=== PATIENT | male | born 1975 | race Caucasian/White ===

== ENCOUNTER 2018-10-24 14:06 | Inpatient (IN) | payer SELFPAY ==
[~2018-10-24] VITALS: Ht 177.8 cm; Wt 60.8 kg
[2018-10-24] MEDS ORDERED: SODIUM CHLORIDE 0.9% 1000ML BAG (SEPSIS BOLUS) IV ONE (15:00)
[2018-10-24 15:20] LABS: CHLORIDE 111 mEq/L (98-107)
[2018-10-24 15:33] LABS: BASOPHILS % 0.9 % (0.0-2.0); EOSINOPHILS % 1.8 % (0.0-5.0); HEMOGLOBIN. 12.9 g/dL (14.0-18.0); LYMPHOCYTES % 33.8 % (20.0-50.0); MEAN CORPUSCULAR HEMOGLOBIN 29.6 pg (28.0-32.0); MEAN CORPUSCULAR VOLUME 89.2 fL (80.0-94.0); MEAN PLATELET VOLUME 8.3 fl (7.4-10.4); MONOCYTES % 11.4 % (2.0-8.0); NEUTROPHILS % 52.1 % (40.0-76.0); PLATELET 321 x1000/uL (130-400); RED BLOOD CELL COUNT 4.37 mill/uL (4.7-6.1); RED CELL DISTRIBUTION WIDTH 15.3 % (11.6-14.6)
[2018-10-24 17:22] LABS: CLARITY URINE CLEAR (CLEAR); COLOR URINE YELLOW (YELLOW); KETONES URINE TRACE (NEGATIVE); LEUKOCYTE ESTERASE URINE NEGATIVE (NEGATIVE); NITRITE URINE NEGATIVE (NEGATIVE); OCCULT BLOOD URINE 2+ (NEGATIVE); PH URINE 5.5 (4.5-8.0); PROTEIN URINE NEGATIVE (NEGATIVE); SPECIFIC GRAVITY URINE 1.029 (1.005-1.030)
[2018-10-24 17:57] LABS: *AMPHETAMINES SCREEN URINE NEGATIVE (NEGATIVE); *BARBITURATES SCREEN URINE NEGATIVE (NEGATIVE); *COCAINE SCREEN URINE NEGATIVE (NEGATIVE); CANNABINOID URINE SCREEN NEGATIVE (NEGATIVE); METHADONE URINE SCREEN NEGATIVE (NEGATIVE); OPIATES URINE SCREEN NEGATIVE (NEGATIVE); PHENCYCLIDINE URINE SCREEN NEGATIVE (NEGATIVE)
[2018-10-24 17:58] LABS: *BENZODIAZEPINES SCREEN URINE NEGATIVE (NEGATIVE)
[2018-10-24] MEDS ORDERED: ACETAMINOPHEN 325MG TABLET PO PRN (19:30)
[2018-10-24] MEDS ORDERED: IPRATROPIUM/ALBUTEROL 0.5-3(2.5)MG/3ML NEB INH PRN (19:30)
[2018-10-24] MEDS ORDERED: DOCUSATE SODIUM 100MG CAPSULE PO PRN (19:30)
[2018-10-24] MEDS ORDERED: ACETAMINOPHEN 650MG SUPP PR PRN (19:30)
[2018-10-24] MEDS ORDERED: ONDANSETRON HCL 4MG/2ML INJ IV PRN (19:30)
[2018-10-24] MEDS ORDERED: ACETAMINOPHEN 650MG/20.3ML UDC GT PRN (19:30)
[2018-10-24] MEDS ORDERED: GUAIFENESIN 200MG/10ML SUGAR FREE UDC PO PRN (19:30)
[2018-10-24] MEDS ORDERED: MAGNESIUM/ALUMINUM HYDROXIDE/SIMETHICONE 30ML UDC PO PRN (19:30)
[2018-10-24] MEDS ORDERED: DIPHENHYDRAMINE 50MG/ML VIAL IV PRN (19:30)
[2018-10-24] MEDS ORDERED: HYDROCODONE/ACETAMINOPHEN 5/325MG TABLET PO PRN (19:30)
[2018-10-24] MEDS ORDERED: CLONIDINE 0.1MG TABLET PO PRN (19:30)
[2018-10-24] MEDS ORDERED: NA PHOS,M-B/NA PHOS,DI-BA ENEMA 118ML PR PRN (19:30)
[2018-10-24] MEDS ORDERED: PIPERACILLIN/TAZ 3.375G PREMIX 50 ML IV NR (20:30)
[2018-10-24 20:38] LABS: D-DIMER 0.31 mg/L FEU (<0.50); INR 0.9; PROTHROMBIN TIME 9.8 sec (9.6-11.0)
[2018-10-24] MEDS: HYDROCODONE/ACETAMINOPHEN 10/325MG TABLET PO PRN (20:46)
[2018-10-24 21:40] VITALS: BP 135/74
[2018-10-24 22:00] VITALS: BP 135/74
[2018-10-24] MEDS ORDERED: CLON1TAB PO (22:26)
[2018-10-24] MEDS ORDERED: PHEN100C4 PO (22:26)
[2018-10-24] MEDS: SODIUM CHLORIDE 0.9% INJ 3ML FLUSH IVF SCH (22:36)
[2018-10-24] MEDS ORDERED: CLONAZEPAM 0.5MG TABLET PO PRN (23:00)
[2018-10-24 23:05] LABS: CREATINE KINASE 310 IU/L (39-308)
[2018-10-24 23:06] LABS: CREATINE KINASE MB FRACTION 6.4 ng/mL (0.5-3.6)
[2018-10-25] VITALS (7 sets, daily range): BP systolic 124–142; BP diastolic 59–83
[2018-10-25] MEDS: HYDROCODONE/ACETAMINOPHEN 10/325MG TABLET PO PRN ×5 (01:32→22:01)
[2018-10-25] MEDS: DEXT 5%/0.45% NACL 1000ML 1,000 ML IV SCH ×2 (01:33→14:14)
[2018-10-25] MEDS: PIPERACILLIN/TAZ 3.375G PREMIX 50 ML IV SCH ×4 (04:51→23:49)
[2018-10-25] MEDS: SODIUM CHLORIDE 0.9% INJ 3ML FLUSH IVF SCH ×3 (05:00→22:02)
[2018-10-25 06:47] LABS: BASOPHILS % 0.6 % (0.0-2.0); EOSINOPHILS % 2.5 % (0.0-5.0); HEMOGLOBIN. 12.2 g/dL (14.0-18.0); LYMPHOCYTES % 36.7 % (20.0-50.0); MEAN PLATELET VOLUME 8.3 fl (7.4-10.4); MONOCYTES % 14.2 % (2.0-8.0); PLATELET 294 x1000/uL (130-400)
[2018-10-25 07:03] LABS: CHLORIDE 110 mEq/L (98-107)
[2018-10-25 07:09] LABS: LDL CHOLESTEROL 61 mg/dL (5-100)
[2018-10-25 07:10] LABS: CREATINE KINASE 276 IU/L (39-308); HDL CHOLESTEROL 70 mg/dL (40-59)
[2018-10-25 07:13] LABS: CREATINE KINASE MB FRACTION 5.8 ng/mL (0.5-3.6)
[2018-10-25] MEDS: PHENYTOIN SODIUM EXTENDED 100MG CAPSULE PO SCH ×3 (08:01→17:38)
[2018-10-25] MEDS: ENOXAPARIN 40MG/0.4ML SYR SUBCUT SCH (09:00)
[2018-10-25 20:34] LABS: LDL CHOLESTEROL 82 mg/dL (5-100)
[2018-10-25 20:36] LABS: CREATINE KINASE 307 IU/L (39-308); HDL CHOLESTEROL 80 mg/dL (40-59); T4 FREE 1.17 ng/dL (0.76-1.46)
[2018-10-26] MEDS: DEXT 5%/0.45% NACL 1000ML 1,000 ML IV SCH ×2 (02:10→12:40)
[2018-10-26] MEDS: HYDROCODONE/ACETAMINOPHEN 10/325MG TABLET PO PRN ×5 (02:15→20:00)
[2018-10-26 03:24] LABS: CREATINE KINASE 290 IU/L (39-308)
[2018-10-26 03:25] LABS: CREATINE KINASE MB FRACTION 6.5 ng/mL (0.5-3.6)
[2018-10-26 04:00] VITALS: BP 138/78
[2018-10-26] MEDS: PIPERACILLIN/TAZ 3.375G PREMIX 50 ML IV SCH ×3 (05:11→17:49)
[2018-10-26] MEDS: SODIUM CHLORIDE 0.9% INJ 3ML FLUSH IVF SCH ×2 (05:11→12:41)
[2018-10-26 08:17] VITALS: BP 144/69
[2018-10-26] MEDS: PHENYTOIN SODIUM EXTENDED 100MG CAPSULE PO SCH ×3 (08:56→17:49)
[2018-10-26] MEDS: ENOXAPARIN 40MG/0.4ML SYR SUBCUT SCH (08:57)
[2018-10-26 11:59] LABS: CREATINE KINASE 282 IU/L (39-308)
[2018-10-26 12:25] VITALS: BP 114/69
[2018-10-26] MEDS ORDERED: LOPERAMIDE HCL 2MG CAPSULE PO PRN (16:30)
[2018-10-26 20:00] VITALS: BP 121/75
[2018-10-27] VITALS: BP 136/78
[2018-10-27] MEDS: SODIUM CHLORIDE 0.9% INJ 3ML FLUSH IVF SCH ×2 (00:07→05:12)
[2018-10-27] MEDS: PIPERACILLIN/TAZ 3.375G PREMIX 50 ML IV SCH ×3 (00:07→12:34)
[2018-10-27] MEDS: DEXT 5%/0.45% NACL 1000ML 1,000 ML IV SCH ×2 (00:07→10:47)
[2018-10-27] MEDS: HYDROCODONE/ACETAMINOPHEN 10/325MG TABLET PO PRN ×3 (00:08→12:25)
[2018-10-27 04:00] VITALS: BP 131/64
[2018-10-27 08:00] VITALS: BP 125/71
[2018-10-27] MEDS: PHENYTOIN SODIUM EXTENDED 100MG CAPSULE PO SCH ×2 (08:13→12:34)
[2018-10-27] MEDS: ENOXAPARIN 40MG/0.4ML SYR SUBCUT SCH (08:15)
[2018-10-27 12:00] VITALS: BP 139/72
[2018-10-27 15:24] VITALS: BP 139/72
[2018-10-27] MEDS ORDERED: CEPH-569 MT (15:24)
== END 2018-10-27 16:40 | disposition home or self-care (01) | DRG 383 ==
LOC: ER 14:06 → 5WST 17:55 → ENRESERV 21:05
PROVIDERS: ADMIT Family Medicine; ATTEND Family Medicine
DX: L03.115 Cellulitis of right lower limb (principal); E87.2 Acidosis; I95.9 Hypotension, unspecified; L03.116 Cellulitis of left lower limb; D63.8 Anemia in other chronic diseases classified elsewhere; F12.90 Cannabis use, unspecified, uncomplicated; R73.9 Hyperglycemia, unspecified; F17.210 Nicotine dependence, cigarettes, uncomplicated; Z59.0 Homelessness; Z82.49 Family history of ischemic heart disease and other diseases of the circulatory system; Z87.11 Personal history of peptic ulcer disease; Z79.899 Other long term (current) drug therapy
CPT/HCPCS: 36415; 71045; 80061; 80305; 82550; 82553; 83036; 83605; 83880; 84439; 84443; 84484; 85379; 87015; 87045; 87427; 87449; 87493; 89055; 93005; 93306; 93970; 96365; 99291; J1650; J2543; J7030